=== PATIENT | female | born 1980 | race Caucasian/White ===

== ENCOUNTER 2020-07-10 15:21 | Emergency (ER) | payer SELFPAY ==
--- NOTE | 2020-07-10 15:37 | ER Document Report ---
ED Medical Screen (RME) - General Chief Complaint: Breathing Difficulty Stated Complaint: DIFFICULTY BREATHING Time Seen by Provider: 07/10/20 15:28 Mode of Arrival: Wheelchair Information source: Patient, Relative Notes: 39-year-old female presented to ED for complaint of shortness of breath. She states she feels like her esophagus is closing. She states she has had this pretty much since she moved to [place] from [place] on June 07. She did go to urgent care on the . They started her on Zyrtec prednisone and see him and it worked for little while she could take it and I will work follow- up allergy time but now is not working at all. She states she did take the Pepc id this morning and seemed like it felt better for a little while but is stopped again. She states she does have an inhaler and that was working follow-up but that stopped working also. She does have a history of thyroid cancer and her thyroid was removed in 1995. She states she did have to drink radioactive iodine for positive lymph nodes but they have all gone away. She states just before coming to [place] she did have ultrasounds and CTs that were negative in [place] for the thyroid cancer. She is also had her gallbladder removed wisdom teeth removed and a history of asthma. She has a history of high blood pressure reflux and endoscopies. She does not smoke drink or use any i llicit drugs. When patient is coaxed to take slow deep breaths her sats are 100%. She just states it feels like her throat is closing anyway. I have greeted and performed a rapid initial assessment of this patient. A comprehensive ED assessment and evaluation of the patient, analysis of test results and completion of medical decision making process will be conducted by an additional ED providers. - Related Data Allergies/Adverse Reactions: Penicillins Allergy (Verified 07/10/20 17:00) Sulfa (Sulfonamide Antibiotics) Allergy (Verified 07/10/20 17:00) Physical Exam - Vital signs Vitals: Temp 97.9 F 07/10/20 15:29 Course - Vital Signs Vital signs: Temp Pulse Resp BP Pulse Ox 97.9 F 103 H 20 133/91 H 99 07/10/20 15:41 07/10/20 15:41 07/10/20 15:42 07/10/20 15:41 07/10/20 15:41 - Laboratory Result Diagrams: 07/10/20 17:00 07/10/20 17:00 Laboratory results interpreted by me: 07/10/20 07/10/20 07/10/20 16:00 17:00 17:00 WBC 13.5 H RDW 14.4 H Seg Neuts % (Manual) 92 H Lymphocytes % (Manual) 8 L Monocytes % (Manual) 0 L Abs Neuts (Manual) 12.4 H Abs Monocytes (Manual) 0.0 L Carbonic Acid ABG pH ABG pCO2 ABG pO2 ABG HCO3 ABG Total CO2 ABG O2 Saturation Sodium 135.0 L Carbon Dioxide 12 L Glucose 162 H Calcium 10.5 H Urine Ketones TRACE H Salicylates 07/10/20 07/10/20 17:00 19:43 WBC RDW Seg Neuts % (Manual) Lymphocytes % (Manual) Monocytes % (Manual) Abs Neuts (Manual) Abs Monocytes (Manual) Carbonic Acid 0.70 L ABG pH 7.46 H ABG pCO2 23.3 L ABG pO2 112.0 H ABG HCO3 16.2 L ABG Total CO2 17.0 L ABG O2 Saturation 98.4 H Sodium Carbon Dioxide Glucose Calcium Urine Ketones Salicylates < 1.0 L
[2020-07-10] MEDS ORDERED: LIDOCAINE 2% VISCOUS SOLN 15 ML UDCUP PO ONE (16:27)
[2020-07-10] MEDS ORDERED: METOCLOPRAMIDE HCL 10 MG TABLET PO ONE (16:27)
[2020-07-10] MEDS ORDERED: LORAZEPAM INJ 2 MG/1 ML VIAL IV ONE (16:27)
[2020-07-10] MEDS ORDERED: MAG HYDROX/AL HYDROX/SIMETH SUSP 30 ML UDCUP PO ONE (16:27)
--- NOTE | 2020-07-10 16:35 | ER Document Report ---
ED General - General Mode of Arrival: Ambulatory Information source: Patient - Related Data Home Medications: prednisone. pepcid. synthroid. viagram. zrytec <CHRISTEN BRAGG - Last Filed: 07/11/20 02:37> <ZAC ULLOA - Last Filed: 07/11/20 06:59> - General Chief Complaint: Breathing Difficulty Stated Complaint: DIFFICULTY BREATHING Time Seen by Provider: 07/10/20 15:28 Primary Care Provider: MELINDA SHOOK MD [ACTIVE STAFF] - Follow up as needed SHIRLEY LOW MD [ACTIVE STAFF] - Follow up as needed YEFRI MA MD [ACTIVE STAFF] - Follow up as needed Notes: 39-year-old female coming in today with her with chief complaint of shortness of breath. She has a history of severe esophagitis in the past while she was living in [place]. At the time, she had the similar symptoms where she felt like when she swallowed that her food would not go down very easily and she recalls that she had the same sensation of not being able to get a good breath when she had that same problem. She was scoped and told that she had "swelling in her esophagus". She was put on a proton pump inhibitor and after some time that her symptoms abated. She has not continued regularly on Nexium. She was treated at a walk-in clinic locally with prednisone and Pepcid for what sounds like they were considering a possible allergic reaction. She did note that she restarted the Nexium about 3 days ago. Her symptoms did get significantly better last night after she took Pepcid. She does not have any history of pulmonary disease. She is a former smoker/vapor but has not smoked in several years. No symptoms of coronavirus. No positive exposures. Had a negative coronavirus test in the past week. (CHRISTEN BRAGG) - Related Data Allergies/Adverse Reactions: Penicillins Allergy (Verified 07/10/20 17:00) Sulfa (Sulfonamide Antibiotics) Allergy (Verified 07/10/20 17:00) Past Medical History - General Information source: Patient, Relative - Social History Smoking Status: Never Smoker Chew tobacco use (# tins/day): No Frequency of alcohol use: None Drug Abuse: None <CHRISTEN BRAGG - Last Filed: 07/11/20 02:37> - Social History Family History: Other - unknown <ZAC ULLOA Haylie - Last Filed: 07/11/20 06:59> Review of Systems <CHRISTEN BRAGG - Last Filed: 07/11/20 02:37> - Review of Systems Notes: Constitutional: No fevers. No chills. EENT: No eye redness. No eye pain. No ear pain. No sore throat. Cardiovascular: No chest pain. No palpitations. Respiratory: No cough. Positive for dyspnea. Gastrointestinal: No abdominal pain. No nausea, vomiting, or diarrhea. Positive for dysphagia Genitourinary: Atraumatic. No lesions. No pain. No discharge. Musculoskeletal: Atraumatic. No swelling. No deformities. Skin: No rash or lesions. Lymphatic: No swollen lymph nodes. Neurologic: No headache. No syncope. Psychiatric: No suicidal or homicidal ideation. (CHRISTEN BRAGG) Physical Exam <CHRISTEN BRAGG - Last Filed: 07/11/20 02:37> - Vital signs Vitals: Temp 97.9 F 07/10/20 15:29 - Notes Notes: General: Well-developed, well-nourished. Positive for mild distress. Anxious appearing Cardiac: Well-perfused. Regular rate and rhythm. No murmurs, rubs, or gallops. Pulmonary: Dyspneic. No cyanosis. Bilateral lung torres are clear to auscultation. Abdominal: Non-distended. Non-rigid. Bowels sounds are present in all four quadrants. No guarding or rebound. HEENT: Head is atraumatic. Conjunctivae not reddened. No tearing. PERRL. EOMI. Orbits atraumatic. No periorbital swelling or erythema. Oropharynx is without erythema, swelling, or exudates. Neck: Supple. No adenopathy. No meningismus. Dermatologic: Warm with good turgor. No rash. Atraumatic. Chest: Atraumatic. No chest wall tenderness to palpation. Musculoskeletal: Moves all extremities well. No range of motion deficits. no muscular or joint tenderness. No paraspinal muscle tenderness. no midline spinal tenderness or step-off. Genitourinary: Examination deferred Neurologic: No gross neurologic deficits. Psychiatric: Normal mood. (CHRISTEN BRAGG) Course - Laboratory Result Diagrams: 07/10/20 17:00 07/10/20 17:00 - Diagnostic Test Radiology reviewed: Reports reviewed - EKG Interpretation by Me EKG shows normal: Sinus rhythm Rate: Normal Rhythm: NSR <CHRISTEN BRAGG - Last Filed: 07/11/20 02:37> - Laboratory Result Diagrams: 07/10/20 17:00 07/11/20 05:20 <ZAC ULLOA - Last Filed: 07/11/20 06:59> - Re-evaluation Re-evalutation: 07/10/20 16:35 Patient is not tachycardic. She has 100% oxygenation saturation, she has a normal respiratory rate. She does not have any risk factors for DVT or PE. Based on her history, it does sound potentially like an esophageal problem. She is able to swallow food and liquids however it feels like it is hard for it to go down. We will give her a GI cocktail to see if this makes an acute change and also some Ativan because she does look very anxious and I think it would relieve some of her dyspnea. Lab work and chest x-ray pending which I expect they will be normal. EKG and cardiac enzymes just in case. 07/10/20 17:59 Patient is a CO2 of 12. Still quite dyspneic despite Ativan and GI cocktail. Discussed presentation with Dr. Gant. We agreed patient needs an arterial blood gas and CT angiogram chest rule out PE. 07/10/20 20:[address] Gant and also Bakari the ICU professional fee coder PA. Here in the ER we decided to give the patient some Pepcid and some IV fluids. 07/11/20 02:37 Second blood gas came back slightly worse than the first. We called Dr. Moody and he said this was not an indication for admission. Give the patient Ativan and reassess. Patient was signed out to Zac Ulloa NP at the end of our shift. She is aware of the findings and the plan for her care. We will give her Valium 5 mg IV now and try to let her rest and not bother her for the next couple of hours. Repeat some lab work to make sure that her blood work shows an interval improvement. (CHRISTEN BRAGG) 07/11/20 06:58 On the repeat chemistry her CO2 has improved. Patient did not want another arterial blood gas drawn. She requested medications for her esophagitis. Prescriptions were prescribed. Patient given follow-up with 2 different primary care providers to choose from and also given contact info for GI. (ZAC ULLOA) - Vital Signs Vital signs: Temp Pulse Resp BP Pulse Ox 98.0 F 103 H 28 H 140/72 H 99 07/11/20 06:52 07/10/20 15:41 07/11/20 06:03 07/11/20 06:52 07/11/20 06:03 - Laboratory Laboratory results interpreted by me: 07/10/20 07/10/20 07/10/20 16:00 17:00 17:00 WBC 13.5 H RDW 14.4 H Seg Neuts % (Manual) 92 H Lymphocytes % (Manual) 8 L Monocytes % (Manual) 0 L Abs Neuts (Manual) 12.4 H Abs Monocytes (Manual) 0.0 L Carbonic Acid ABG pH ABG pCO2 ABG pO2 ABG HCO3 ABG Total CO2 ABG O2 Saturation Sodium 135.0 L Carbon Dioxide 12 L Glucose 162 H Calcium 10.5 H Urine Ketones TRACE H Salicylates 07/10/20 07/10/20 07/11/20 17:00 19:43 01:22 WBC RDW Seg Neuts % (Manual) Lymphocytes % (Manual) Monocytes % (Manual) Abs Neuts (Manual) Abs Monocytes (Manual) Carbonic Acid 0.70 L 0.58 L ABG pH 7.46 H 7.54 H ABG pCO2 23.3 L 19.2 L* ABG pO2 112.0 H 116.0 H ABG HCO3 16.2 L 15.9 L ABG Total CO2 17.0 L 16.5 L ABG O2 Saturation 98.4 H 98.7 H Sodium Carbon Dioxide Glucose Calcium Urine Ketones Salicylates < 1.0 L 07/11/20 05:20 WBC RDW Seg Neuts % (Manual) Lymphocytes % (Manual) Monocytes % (Manual) Abs Neuts (Manual) Abs Monocytes (Manual) Carbonic Acid ABG pH ABG pCO2 ABG pO2 ABG HCO3 ABG Total CO2 ABG O2 Saturation Sodium 135.5 L Carbon Dioxide 19 L Glucose Calcium Urine Ketones Salicylates - EKG Interpretation by Me Additional EKG results interpreted by me: 07/11/20 02:[address] elevations or depressions (CHRISTEN BRAGG) Discharge <CHRISTEN BRAGG - Last Filed: 07/11/20 02:37> <ZAC ULLOA - Last Filed: 07/11/20 06:59> - Discharge Clinical Impression: Shortness of breath, Esophagitis Condition: Stable Disposition: HOME, SELF-CARE Additional Instructions: Your work-up today was reassuring. The repeat blood work shows a significantly better CO2 level. I do believe the lab work was being thrown off by your increased respiratory drive and possibly hyperventilation. Please continue taking all medications as prescribed by your primary care provider. Prescriptions: Sucralfate [Carafate 1 gm Tablet] 1 gm PO ACHS #60 tablet Pantoprazole Sodium [Protonix [address] Tablet] 40 mg PO QAM #20 tablet.dr Referrals: MELINDA SHOOK MD [ACTIVE STAFF] - Follow up as needed YEFRI MA MD [ACTIVE STAFF] - Follow up as needed SHIRLEY LOW MD [ACTIVE STAFF] - Follow up as needed
[2020-07-10 16:58] LABS: APPEARANCE,URINE CLEAR; BILIRUBIN,URINE NEGATIVE (NEGATIVE); COLOR,URINE COLORLESS; GLUCOSE, URINE NEGATIVE (NEGATIVE); KETONES,URINE TRACE mg/dL (NEGATIVE); LEUKOCYTE ESTERASE,URINE NEGATIVE (NEGATIVE); NITRITE,URINE NEGATIVE (NEGATIVE); PROTEIN,URINE NEGATIVE (NEGATIVE); URINE SPECIFIC GRAVITY 1.001; UROBILINOGEN,URINE NEGATIVE mg/dL (<2.0)
--- NOTE | 2020-07-10 16:58 | RADIOLOGY REPORT (SQ) ---
EXAM DESCRIPTION: CHEST 2 VIEWS IMAGES COMPLETED DATE/TIME: 07/10/2020 3:31 pm REASON FOR STUDY: Shortness of breath feels like esophagus closing. COMPARISON: None. EXAM PARAMETERS: NUMBER OF VIEWS: two views TECHNIQUE: Digital Frontal and Lateral radiographic views of the chest acquired. RADIATION DOSE: NA LIMITATIONS: none FINDINGS: LUNGS AND PLEURA: No opacities, masses or pneumothorax. No pleural effusion. MEDIASTINUM AND HILAR STRUCTURES: No masses or contour abnormalities. HEART AND VASCULAR STRUCTURES: Heart normal size. No evidence for failure. BONES: No acute findings. HARDWARE: None in the chest. OTHER: No other significant finding. IMPRESSION: NO ACUTE RADIOGRAPHIC FINDING IN THE CHEST. TECHNICAL DOCUMENTATION: JOB ID: [id number] 2010 [employer]- All Rights Reserved Reading location - IP/workstation name: [email or web address]
[2020-07-10 17:22] LABS: HEMATOCRIT 41.9 % (36.0-47.0); HEMOGLOBIN 14.3 g/dL (12.0-15.5); MEAN CORPUSCULAR HGB CONC 34.2 g/dL (32.0-36.0); MEAN CORPUSCULAR VOLUME 85 fl (80-97); PLATELET COUNT 324 10^3/uL (150-450); RED BLOOD COUNT 4.94 10^6/uL (3.72-5.28); RED CELL DISTRIBUTION WIDTH 14.4 % (11.5-14.0); WHITE BLOOD COUNT 13.5 10^3/uL (4.0-10.5)
[2020-07-10 17:38] LABS: ALBUMIN 4.6 g/dL (3.5-5.0); ALKALINE PHOSPHATASE 71 U/L (38-126); ANION GAP 18 (5-19); ASPARTATE AMINO TRANSFERASE 27 U/L (14-36); BILIRUBIN,DIRECT 0.3 mg/dL (0.0-0.4); BILIRUBIN,TOTAL 0.9 mg/dL (0.2-1.3); BLOOD UREA NITROGEN 15 mg/dL (7-20); CALCIUM 10.5 mg/dL (8.4-10.2); CARBON DIOXIDE 12 mmol/L (22-30); CHLORIDE 105 mmol/L (98-107); GLUCOSE 162 mg/dL (75-110); POTASSIUM 4.3 mmol/L (3.6-5.0); TOTAL PROTEIN 7.7 g/dL (6.3-8.2)
[2020-07-10 18:00] LABS: ABSOLUTE LYMPHOCYTES# (MANUAL) 1.1 10^3/uL (0.5-4.7); BASOPHILS % (MANUAL) 0 % (0-2); EOSINOPHILS % (MANUAL) 0 % (0-6); LYMPHOCYTES % (MANUAL) 8 % (13-45); MONOCYTES % (MANUAL) 0 % (3-13); SEGMENTED NEUTROPHILS % (MAN) 92 % (42-78); TOTAL CELLS COUNTED 100
[2020-07-10 18:01] LABS: ANISOCYTOSIS SLIGHT; PLATELET COMMENT ADEQUATE; TOXIC GRANULATION 1+
--- NOTE | 2020-07-10 19:06 | RADIOLOGY REPORT (SQ) ---
EXAM DESCRIPTION: CTA CHEST IMAGES COMPLETED DATE/TIME: 07/10/2020 6:53 pm REASON FOR STUDY: dyspnea, low co2 COMPARISON: None. TECHNIQUE: CT scan of the chest performed using helical scanning technique with dynamic intravenous contrast injection. Images reviewed with lung, soft tissue and bone windows. Reconstructed coronal and sagittal MPR images reviewed. Additional 3 dimensional post-processing performed to develop Maximal Intensity Projection images (ME P). All images stored on PACS. All CT scanners at this facility use dose modulation, iterative reconstruction, and/or weight based d osing when appropriate to reduce radiation dose to as low as reasonably achievable (ALARA). [facility]: Dose Right [facility]: CareDose [facility]: Dose Right [facility]: Teradose 4D [facility]: VSoft CONTRAST TYPE AND DOSE: contrast/concentration: Isovue 350.00 mmol/ml; Total Contrast Delivered: 70. 0 ml; Total Saline Delivered: 80.0 ml Contrast bolus adequate for pulmonary arteries and aorta. RENAL FUNCTION: None required. The patient is less than 50 years old. RADIATION DOSE: CT Rad equipment meets quality standard of care and radiation dose reduction techniq ues were employed. CTDIvol: 9.9 - 22.6 mGy. DLP: 785 mGy-cm. . LIMITATIONS: None. FINDINGS: LUNGS AND PLEURA: No masses, infiltrates, or pneumothorax. No pleural effusions or pleura l calcifications. AORTA AND GREAT VESSELS: No aneurysm. Contrast bolus not optimized for the aorta. HEART: No pericardial effusion. No significant coronary artery calcifications. PULMONARY ARTERIES: No emboli visualized in the main pulmonary arteries or the segmental branches. HILAR AND MEDIASTINAL STRUCTURES: No identified masses or abnormal nodes. HARDWARE: None in the chest. UPPER ABDOMEN: No significant findings. Limited exam. THYROID AND OTHER SOFT TISSUES: No masses. No adenopathy. BONES: No acute or significant finding. 3D MIPS: Confirm above findings. OTHER: No other significant finding. IMPRESSION: NORMAL CTA OF THE CHEST. NO PULMONARY EMBOLI. COMMENT: Quality ID # [id number]: Final reports with documentation of one or more dose reduction techniques (e.g., Automated exposure control, adjustment of the mA and/or kV according to patient size, use of iterative reconstruction technique) TECHNICAL DOCUMENTATION: JOB ID: [id number] 2010 [employer]- All Rights Reserved Reading location - IP/workstation name: [email or web address]
[2020-07-10 20:11] LABS: ARTERIAL BLOOD BASE EXCESS -5.4 mmol/L; ARTERIAL BLOOD FIO2 ROOM AIR; ARTERIAL BLOOD HCO3 16.2 mmol/L (20-24); ARTERIAL BLOOD O2 SATURATION 98.4 % (94-98); ARTERIAL BLOOD PCO2 23.3 mmHg (35-45); ARTERIAL BLOOD PH 7.46 (7.35-7.45)
[2020-07-10] MEDS ORDERED: NORMAL SALINE 1000 ML 1,000 ML IV ONE (20:30)
[2020-07-10] MEDS ORDERED: FAMOTIDINE INJ/PF 20 MG/2 ML SDV IV ONE (20:30)
--- NOTE | 2020-07-10 20:54 | EKG REPORT ---
SEVERITY:- ABNORMAL ECG - SINUS RHYTHM ABNRM R PROG, CONSIDER ASMI OR LEAD PLACEMENT : Confirmed by: Tyrone Shultz MD 10-Jul-2020 20:53:02
[2020-07-10 21:02] LABS: ALCOHOL < 10 mg/dL (NONE DETECTED)
[2020-07-10 21:56] LABS: SALICYLATE < 1.0 mg/dL (2.0-20.0)
--- NOTE | 2020-07-10 23:07 | RADIOLOGY REPORT (SQ) ---
EXAM DESCRIPTION: CT ABDOMEN PELVIS WITHOUT IV CONTRAST COMPLETED DATE/TME: 07/10/2020 21:22 CLINICAL HISTORY: 39 years Female metabolic acidosis COMPARISON: 07/10/2020. TECHNIQUE: Contiguous axial images obtained through the abdomen and pelvis without IV contrast. Reformatted images obtained. This exam was performed according to our department optimization program which includes automated exposure control, adjustment of the mA and/or kv according to patient size and/or use of iterative reconstruction technique. FINDINGS: There is residual contrast in the renal collecting systems and the urinary bladder from the earlier CT. The lung bases are clear. Enlarged fatty liver measuring 20.5 cm. The spleen and pancreas appear unremarkable. No adrenal masses. The kidneys appear unremarkable. No hydronephrosis or definite ureteral calculi. The gallbladder is absent No aneurysmal dilatation of the aorta. No bowel obstruction. Unremarkable appendix. Diverticulosis without diverticulitis. Trace free fluid in the pelvis which may be physiologic in a patient of this age Ventral hernia containing fat IMPRESSION: No evidence of acute process Enlarged fatty liver Diverticulosis without diverticulitis
--- NOTE | 2020-07-10 23:50 | ER Document Report ---
Doctor's Note Notes: 07/10/20 23:48 Patient seen in conjunction with the physician workers compensation claims assistant, please see his note correlate with mine. In short the patient has had GI symptoms, chest tightness. She states that she feels like she is "breathing through a straw." She states a few days ago she started having increased breathing and a tightness in her chest. She felt short of breath, then noted that she had some numbness and tingling in her hands. She has been diagnosed with esophagitis in the past, which was actually found incidentally after ENT scope status post thyroidectomy. The patient had an endoscopy performed at that time, was diagnosed with esophagitis. At that point she realized that she had had some acid reflux symptoms, they were made better by being on Nexium chronically. She stopped taking that. Her symptoms have increased again over the last month. On exam, patient is mildly hyperventilating, a very breathy sounding voice. Her lungs are clear, heart is regular rate and rhythm. Her abdomen is soft and nontender. Laboratory investigations revealed a significantly low bicarb. Her findings on her ABG are most consistent with an acute respiratory alkalosis with metabolic compensation. I believe that this patient is having perceived difficulty breathing, hyperventilating, and the resultant metabolic abnormality has manifested in these lab abnormalities. Patient's vitals are normal. She is nontoxic in appearance. We have ruled out pulmonary embolus with an appropriate CT angiogram of the chest. CT of the abdomen, pelvis, without contrast as she had already received a dye load, was unremarkable as well. Patient was placed on a nonrebreather. She had a GI cocktail earlier with only minimal relief of her symptoms, but after Pepcid, fluids, and nonrebreather, the patient is feeling improved. Pending improvement in her labs, I do believe that outpatient management of this issue will be appropriate.
[2020-07-11 01:49] LABS: ARTERIAL BLOOD BASE EXCESS -3.9 mmol/L; ARTERIAL BLOOD H2CO3 0.58 mmol/L (1.05-1.35); ARTERIAL BLOOD HCO3 15.9 mmol/L (20-24); ARTERIAL BLOOD O2 SATURATION 98.7 % (94-98); ARTERIAL BLOOD PH 7.54 (7.35-7.45); ARTERIAL BLOOD TOTAL CO2 16.5 mmol/L (21-25)
[2020-07-11 01:53] LABS: ARTERIAL BLOOD FIO2 ROOM AIR; ARTERIAL BLOOD PCO2 19.2 mmHg (35-45)
[2020-07-11] MEDS ORDERED: DIAZEPAM INJ 10 MG/2 ML DISP.SYRIN IV ONE (02:36)
[2020-07-11 06:05] LABS: ANION GAP 12 (5-19); BLOOD UREA NITROGEN 12 mg/dL (7-20); CALCIUM 9.1 mg/dL (8.4-10.2); CARBON DIOXIDE 19 mmol/L (22-30); CHLORIDE 105 mmol/L (98-107); GLUCOSE 94 mg/dL (75-110)
[2020-07-11 06:53] VITALS: BP 140/72
== END 2020-07-11 07:04 | disposition home or self-care (01) ==
LOC: ER 15:21
DX: R06.02 Shortness of breath (principal); K20.90 Esophagitis, unspecified without bleeding; R06.00 Dyspnea, unspecified; R13.10 Dysphagia, unspecified; R20.2 Paresthesia of skin; K76.0 Fatty (change of) liver, not elsewhere classified
CPT/HCPCS: 93005; 99285; 96361; 96374; 96375 ×2; 36415; 80307 ×2; 82803; 83605; 83690; 85025; 80048; 80053; 81001; 84484; 71046; 71275; 74176; 93010; 36600; J3360; J3490; J2060; J7030; S0028